=== PATIENT | male | born 1955 | race African-American/Black ===

== ENCOUNTER 2016-07-01 02:54 | Emergency (ER) | payer OTHER ==
[2016-07-01] MEDS ORDERED: DUONEB 0.5 MG/3 MG ONE (03:03)
[2016-07-01] MEDS ORDERED: LASIX IVP ONE ×2 (03:13→03:52)
[2016-07-01] MEDS ORDERED: DUONEB 0.5 MG/3 MG NEB ONE (03:13)
--- NOTE | 2016-07-01 03:14 | DR.GENAD ---
HPI - PCP Primary Care Physician: nfd - HPI Comment HPI Comment: PATIENT HAVE PROGRESSIVE DYSPNEA TIMES 3 MONTHS. ON MEDICATION AND STARTED GETTING WORSE ONE WEEK AGO. TONIGHT WOKE UP AND COULD NOT BREATH. MEDS AT HOME DID NOT HELP. CHEST IS TIGHT AND PATIENT IS WEAK. COUGHING. CHEST IS TIGHT, EXERTIONAL DYSPNEA, PND AND ORTHOPNEA PRESENT. - Complaint/Symptoms Chief Complaint Doctors Comments: INCREASING SOB AND CHEST PAIN. Chief Complaint:: pt states " i feel like i can't breathe coughing for about 3 months" - Nurses notes reviewed Nurses Notes Review: Yes - Source History Provided: Patient - Mode of Arrival Mode of Arrival: Ambulatory - Timing Onset of Chief Complaint: 07/01/16 Came on: Gradually - Duration Duration: Constant Duration: Days - Severity Severity: Moderate PMH - PMH Past Medical History: Yes Past Medical History: Hypertension, Diabetes, Depression Past Medical History Comment: ptsd Past Surgical History: No - Family History History of Family Medical Conditions: Yes Family Medical History: Heart Failure, Hypertension - Social History Does any household member use tobacco: No Alcohol Use: Occasionally Do you use any recreational Drugs:: No Lives With: Family Lives Where: Home - infectious screening In the last 2 months have you had wt loss of >10#?: NO Have you had fever, night sweats or hemotysis?: No Have you traveled outside the country in the last 6 months?: No Isolation: Standard ROS - Review of Systems Constitutional: Weakness, Fatigue. negative: Chills, Fever Eyes: No Symptoms Reported. negative: Eye Pain, Discharge ENTM: Nose Congestion. negative: Ear Pain, Nose Discharge, Throat Pain Respiratoy: Productive Cough, Short of Breath, Wheezing. negative: Hemoptysis Cardiovascular: Chest Pain. negative: Edema, Syncope Gastrointestinal/Abdominal: No Symptoms Reported. negative: Abdominal Pain, Constipation, Diarrhea, Nausea, Vomiting Genitourinary: No Symptoms Reported. negative: Dysuria, Frequency, Hematuria Neurological: Headache, Weakness, Dizziness Musculoskeletal: Muscle Pain Integumentary: No Symptoms Reported Hematologic/Lymphatic: Easy Bruising Endocrine: negative: Flushing All Other Systems: Reviewed and Negative PE - Vital Signs Vitals: Temperature 98.6 F Pulse Rate 88 Respiratory Rate 22 Blood Pressure 176/115 O2 Sat by Pulse Oximetry 96 - General Limitations: No Limitations General Appearance: Alert - Head Head Exam: Normal Inspection - Eyes Eye exam: Normal Appearance - ENT ENT Exam: Normal External Ear Exam External Ear Exam: Normal External Inspection TM/Canal Exam: Bilateral Normal Nose Exam: Normal Nose Exam Mouth Exam: Normal Inspection Throat Exam: Normal Inspection - Neck Neck Exam: Trachea Midline. negative: Tenderness, Meningismus, Lymphadenopathy - Chest Chest Inspection: Symmetric Chest Wall Rise - Respiratory Respiratory Exam: Respiratory Distress. negative: Chest Wall Tenderness Respiratory Exam: Bilateral Wheezing, Bilateral Rhonchi, Upper Rhonchi, Lower Wheezing, Lower Rhonchi - Cardiovascular Cardiovascular Exam: Regular Rate, Normal Rhythm, Normal Heart Sounds, Gallop, + S3 - Abdominal Exam Abdominal Exam: Normal Bowel Sounds, Soft. negative: Tenderness - Extremities Extremities Exam: Normal Inspection - Back Back Exam: Paraspinal Tenderness - Neurologic Neurological Exam: Alert - Psychiatric Psychiatric Exam: Anxious MDM - Additional Information Additional Information Obtained From: Family - Differential Diagnosis Differential Diagnosis: RESPIRATORY DISTRESS, CHF, COPD EXACERBATION, BRONCHITIS , PNEUMONIA Course - Treatment Treatment: SEE ORDERS.. NEB TREATMENT AND IV LASIX. IMPROVING. - Education/Counseling Education/Counseling: Patient, Family, Education Educated On: Treatment, Diagnosis ROR - Labs Reviewed Result Diagrams: 07/01/16 03:21 07/01/16 03:21 Laboratory: WBC 6.9 X10^3/uL (3.6-10.0) 07/01/16 03:21 RBC 5.82 X10^6/uL (4.7-6.0) 07/01/16 03:21 Hgb 16.8 g/dL (13.5-18.0) 07/01/16 03:21 Hct 50.1 % (42.0-54.0) 07/01/16 03:21 MCV 86.0 fL (80.0-100.0) 07/01/16 03:21 MCH 28.9 pg (27.0-34.0) 07/01/16 03:21 MCHC 33.5 g/dL (33.0-35.0) 07/01/16 03:21 RDW 13.9 % (11.6-16.5) 07/01/16 03:21 Plt Count 286 X10^3/uL (150.0-450.0) 07/01/16 03:21 MPV 8.0 fL (7.4-11.0) 07/01/16 03:21 Neut % 43.7 % (42.0-75.0) 07/01/16 03:21 Lymph % 43.4 % (21.0-51.0) 07/01/16 03:21 Sandoval % 7.3 % (0.0-13.0) 07/01/16 03:21 Eos % 4.4 % (0.9-2.9) H 07/01/16 03:21 Baso % 1.2 % (0.2-1.0) H 07/01/16 03:21 Neut # 3.0 x10^3/uL (2.2-4.8) 07/01/16 03:21 Lymph # 3.0 X10^3/uL (1.3-2.9) H 07/01/16 03:21 Sandoval # 0.5 x10^3/uL (0.3-0.8) 07/01/16 03:21 Eos # 0.3 x10^3/uL (0.0-0.2) H 07/01/16 03:21 Baso # 0.1 X10^3/uL (0.0-0.1) 07/01/16 03:21 Absolute Nucleated RBC 0.0 /100WBC 07/01/16 03:21 Sample Site Rbra 07/01/16 03:13 ABG pH 7.470 (7.35-7.45) H 07/01/16 03:13 ABG pCO2 36.0 mmHg (35.0-45.0) 07/01/16 03:13 ABG pO2 75.0 mmHg (80.0-100.0) L 07/01/16 03:13 ABG HCO3 26.2 mmol/L (22-26) H 07/01/16 03:13 ABG O2 Saturation 96.0 % (90-100) 07/01/16 03:13 ABG Base Excess 2.6 mmol/L (-2.0-2.0) H 07/01/16 03:13 Sarwat Test Na 07/01/16 03:13 A-a Gradient 30.0 mmHg 07/01/16 03:13 FiO2 21.000 07/01/16 03:13 Blood Gas Comments Mando abg well-mtf 07/01/16 03:13 Sodium 141 mmol/L (136-145) 07/01/16 03:21 Corrected Sodium 141 mmol/L (136-145) 07/01/16 03:21 Potassium 3.9 mmol/L (3.5-5.1) 07/01/16 03:21 Chloride 103 mmol/L (98-107) 07/01/16 03:21 Carbon Dioxide 28.3 mmol/L (21-32) 07/01/16 03:21 BUN 13 mg/dL (7-18) 07/01/16 03:21 Creatinine 1.17 mg/dL (0.70-1.30) 07/01/16 03:21 Est GFR (MDRD) Af Amer > 60 (>60) 07/01/16 03:21 Est GFR (MDRD) Non-Af > 60 (>60) 07/01/16 03:21 Glucose 112 mg/dL (65-99) H 07/01/16 03:21 Calcium 8.7 mg/dL (8.5-10.1) 07/01/16 03:21 Corrected Calcium 9.3 mg/dL (8.5-10.1) 07/01/16 03:21 Total Bilirubin 0.30 mg/dL (0.2-1.0) 07/01/16 03:21 AST 54 Units/L (15-37) H 07/01/16 03:21 ALT 62 Units/L (12-78) 07/01/16 03:21 Alkaline Phosphatase 54 Units/L (46-116) 07/01/16 03:21 Creatine Kinase 182 Units/L (39-308) 07/01/16 03:21 CK-MB (CK-2) 3.0 ng/mL (0-4.0) 07/01/16 03:21 CK/CKMB % Calc 1.7 % (<4) 07/01/16 03:21 Troponin I 0.17 ng/mL (0-1.5) 07/01/16 03:21 B-Natriuretic Peptide 213 pg/mL (0-79) H 07/01/16 03:21 Total Protein 7.5 g/dL (6.4-8.2) 07/01/16 03:21 Albumin 3.3 g/dL (3.4-5.0) L 07/01/16 03:21 Globulin 4.2 g/dL (2.5-4.5) 07/01/16 03:21 Albumin/Globulin Ratio 0.8 Ratio (1.1-2.1) L 07/01/16 03:21 - XRAY XRAY Interpreted by: Radiologist XRAY Findings: REPORT DISCUSS WITH PATIENT. - EKG Rhythm: NSR (EKG NOTED.) - Diagnosis Discharge Problem: CHF (congestive heart failure) Qualifiers: Congestive heart failure type: combined Congestive heart failure chronicity: acute on chronic Qualified Code(s): I50.43 - Acute on chronic combined systolic (congestive) and diastolic (congestive) heart failure - Discharge Plan Disposition: HOME, SELF-CARE Condition: Stable Prescriptions: Furosemide [Lasix] 20 mg PO QAM #30 tab - Follow ups/Referrals Follow ups/Referrals: NFD,None [Primary Care Provider] - 2 days - Instructions Instructions: Heart Failure, [id number] Additional Instructions: RETURN TO ED IF WORSE.
[2016-07-01 03:22] VITALS: BP 176/115; BMI 24.5
[2016-07-01 03:28] LABS: BASOPHILS # (AUTO) 0.1 X10^3/uL (0.0-0.1); BASOPHILS % (AUTO) 1.2 % (0.2-1.0); EOSINOPHILS # (AUTO) 0.3 x10^3/uL (0.0-0.2); EOSINOPHILS % (AUTO) 4.4 % (0.9-2.9); HEMATOCRIT 50.1 % (42.0-54.0); HEMOGLOBIN 16.8 g/dL (13.5-18.0); LYMPHOCYTES % (AUTO) 43.4 % (21.0-51.0); MEAN CORPUSCULAR HEMOGLOBIN 28.9 pg (27.0-34.0); MEAN CORPUSCULAR HGB CONC 33.5 g/dL (33.0-35.0); MONOCYTES # (AUTO) 0.5 x10^3/uL (0.3-0.8); MONOCYTES % (AUTO) 7.3 % (0.0-13.0); NEUTROPHILS % (AUTO) 43.7 % (42.0-75.0); PLATELET COUNT 286 X10^3/uL (150.0-450.0); RED BLOOD COUNT 5.82 X10^6/uL (4.7-6.0); RED CELL DISTRIBUTION WIDTH 13.9 % (11.6-16.5); WHITE BLOOD COUNT 6.9 X10^3/uL (3.6-10.0)
[2016-07-01 03:41] LABS: BLOOD UREA NITROGEN 13 mg/dL (7-18); CALCIUM 8.7 mg/dL (8.5-10.1); CARBON DIOXIDE 28.3 mmol/L (21-32); CHLORIDE 103 mmol/L (98-107); COR NA(FOR HYPERGLY) 141 mmol/L (136-145); CREATININE 1.17 mg/dL (0.70-1.30); GLUCOSE 112 mg/dL (65-99); SODIUM 141 mmol/L (136-145); TROPONIN I 0.17 ng/mL (0-1.5); eGFR BLACK RACES > 60 (>60); eGFR NON BLACK RACES > 60 (>60)
[2016-07-01 03:42] LABS: ABG BASE EXCESS 2.6 mmol/L (-2.0-2.0); ABG HCO3 26.2 mmol/L (22-26)
--- NOTE | 2016-07-01 03:45 | RAD ---
EXAM: Chest X-ray INDICATION: Shortness of breath COMPARISION: No prior TECHNIQUE: Single view FINDINGS: The lungs are clear and the lung volumes are within normal limits. No pleural effusion or pneumothor ax. The cardiac silhouette is mildly enlarged and there central vascular congestion. The regional s ke[place] is intact. IMPRESSION: There is mild cardiomegaly and central vascular congestion. Reported By:
[2016-07-01 03:46] LABS: ALANINE AMINOTRANSFERASE 62 Units/L (12-78); ALBUMIN 3.3 g/dL (3.4-5.0); ALKALINE PHOSPHATASE 54 Units/L (46-116); ASPARTATE AMINO TRANSFERASE 54 Units/L (15-37); CKMB % 1.7 % (<4); COR CA(FOR HYPOALB) 9.3 mg/dL (8.5-10.1); CREATINE KINASE 182 Units/L (39-308); TOTAL PROTEIN 7.5 g/dL (6.4-8.2)
[2016-07-01 03:50] LABS: B-TYPE NATRIURETIC PEPTIDE 213 pg/mL (0-79)
[2016-07-01] MEDS ORDERED: CATAPRES TAB 0.1 MG PO ONE (04:53)
[2016-07-01] MEDS ORDERED: CATAPRES TAB 0.1 MG ONE (04:54)
== END 2016-07-01 05:45 | disposition home or self-care (01) ==
LOC: ER 02:54
DX: I50.43 Acute on chronic combined systolic (congestive) and diastolic (congestive) heart failure (principal); I51.7 Cardiomegaly; R06.02 Shortness of breath
CPT/HCPCS: 36415; 36600; 71010; 80053; 82550; 82553; 82803; 83880; 84484; 85025; 93005; 93010; 94640; 96365; 96374; 99283; A4222; J1940; J7620

== ENCOUNTER 2017-02-21 08:07 | Emergency (ER) | payer OTHER ==
[2017-02-21 08:16] VITALS: BMI 23.5
--- NOTE | 2017-02-21 08:25 | DR.SOBA ---
HPI - Time Seen Time seen: 08:05 - Primary Care Physician Primary Care Physician: JEFF - HPI Comment HPI Comment: NO FEVER. COUGH PRODUCTIVE WITH BLOOD AND GREEN SPUTUM. CHEST PAIN MAINLY LOWER CHEST. GOT WORSE LAST NIGHT. - Complaints Chief Complaint Doctors Comments: INCREASING SOB, COUGH AND CHEST PAIN TIMES 2 WEEKS. Chief Complaint:: PT. C/O SHORTNESS OF BREATH X 1 DAY AND COUGH X 2 WEEKS. DENIES PAIN. - Reviewed Nurses Notes Reviewed: Yes - Source History Provided: Patient, Significant Other - Mode of Arrival Mode of Arrival: Wheelchair - Timing Onset of Chief Complaint: 02/20/17 - Duration Duration: Weeks - Context Onset:: At Rest, With Light Exertion History of:: None Prehospital Care:: None - Modifying Factors Worsens:: Exertion, Lying Flat Improves:: Sitting Up - Associated Signs and Symptoms Associated Signs and Symptoms: Wheeze, Cough, Nasal Congestion, Hemoptysis, Chest Pain - If Chest Pain Quality: Sharp Location: Right Lower Chest, Left Lower Chest - If Cough Cough: Productive, Green, Bloody PMH - PMH Past Medical History: Yes Past Medical History: CHF, Depression, Diabetes, Hypertension Past Surgical History: Yes Surgical History: Other Past Surgical History Comment: NECK - Family History History of Family Medical Conditions: Yes Family Medical History: Heart Failure, Hypertension - Social History Does patient currently use any type of tobacco product: No Have you used tobacco products in the last 12 months: No Type of Tobacco Use: None Alcohol Use: Heavy Do you use any recreational Drugs:: No Lives With: Spouse Lives Where: Home - infectious screening In the last 2 months have you had wt loss of >10#?: NO Have you had fever, night sweats or hemotysis?: No Have you traveled outside the country in the last 6 months?: No Isolation: Standard ROS - Review of Systems Constitutional: Weakness, Fatigue Eyes: negative: Eye Pain, Discharge ENTM: Nose Discharge, Nose Congestion. negative: Ear Pain, Throat Pain Respiratoy: Productive Cough, Short of Breath, Wheezing, Hemoptysis Cardiovascular: Chest Pain Gastrointestinal/Abdominal: No Symptoms Reported Genitourinary: No Symptoms Reported Neurological: Headache, Weakness, Dizziness Musculoskeletal: Back Pain, Muscle Pain Integumentary: No Symptoms Reported Hematologic/Lymphatic: No Symptoms Reported Endocrine: No Symptoms Reported All Other Systems: Reviewed and Negative PE - Vital Signs Vitals: Temperature 98.1 F Pulse Rate [Apical] 85 Pulse Rate 90 Respiratory Rate 20 Blood Pressure [Left Arm] 158/91 Blood Pressure 179/119 O2 Sat by Pulse Oximetry 97 - General Limitations: No Limitations General Appearance: Alert - Head Head Exam: Normal Inspection - Eyes Eye exam: Normal Appearance - ENT ENT Exam: Normal External Ear Exam - Neck Neck Exam: Trachea Midline. negative: Tenderness, Meningismus, Lymphadenopathy - Chest Chest Inspection: Symmetric Chest Wall Rise - Respiratory Respiratory Exam: Respiratory Distress Respiratory Exam: Bilateral Wheezing, Bilateral Rhonchi, Bilateral Crackles, Upper Wheezing, Upper Rhonchi, Lower Wheezing, Lower Rhonchi, Lower Crackles - Cardiovascular Cardiovascular Exam: Regular Rate, Normal Rhythm, Normal Heart Sounds - Abdominal Exam Abdominal Exam: Normal Bowel Sounds, Soft. negative: Tenderness - Extremities Extremities Exam: Normal Inspection - Back Back Exam: Normal Inspection - Neurologic Neurological Exam: Alert, Oriented X3 - Psychiatric Psychiatric Exam: Normal Affect, Normal Mood - Skin Skin Exam: Normal Color MDM - Additional Information Obtained Additional Information Obtained From: Family - Differential Diagnosis Differential Diagnosis: Bronchitis, CHF, COPD, Mycardial Infarction, Pneumonia, Respiratory Insufficiency Course - Treatment Treatment: SEE ORDERS. MEDS GIVEN IN ED. - Reevaluation 1st: Improved - Education/Counseling Education/Counseling: Patient, Family, Education Educated On: Treatment, Diagnosis, Needs for Follow Up ROR - Labs Reviewed Laboratory Results Reviewed?: Yes Result Diagrams: 02/21/17 08:26 02/21/17 08:26 Laboratory: 02/21/17 10:00 Sputum - Expectorated Sputum Sputum Culture - Final 02/21/17 10:00 Sputum - Expectorated Sputum - Final WBC 7.4 X10^3/uL (3.6-10.0) 02/21/17 08:26 RBC 5.50 X10^6/uL (4.7-6.0) 02/21/17 08:26 Hgb 15.9 g/dL (13.5-18.0) 02/21/17 08:26 Hct 47.5 % (42.0-54.0) 02/21/17 08:26 MCV 86.3 fL (80.0-100.0) 02/21/17 08:26 MCH 28.9 pg (27.0-34.0) 02/21/17 08:26 MCHC 33.5 g/dL (33.0-35.0) 02/21/17 08:26 RDW 13.3 % (11.6-16.5) 02/21/17 08:26 Plt Count 339 X10^3/uL (150.0-450.0) 02/21/17 08:26 MPV 8.3 fL (7.4-11.0) 02/21/17 08:26 Neut % 57.9 % (42.0-75.0) 02/21/17 08:26 Lymph % 30.6 % (21.0-51.0) 02/21/17 08:26 Latimer % 8.6 % (0.0-13.0) 02/21/17 08:26 Eos % 1.7 % (0.9-2.9) 02/21/17 08:26 Baso % 1.2 % (0.2-1.0) H 02/21/17 08:26 Neut # 4.3 x10^3/uL (2.2-4.8) 02/21/17 08:26 Lymph # 2.3 X10^3/uL (1.3-2.9) 02/21/17 08:26 Latimer # 0.6 x10^3/uL (0.3-0.8) 02/21/17 08:26 Eos # 0.1 x10^3/uL (0.0-0.2) 02/21/17 08:26 Baso # 0.1 X10^3/uL (0.0-0.1) 02/21/17 08:26 Absolute Nucleated RBC 0.0 /100WBC 02/21/17 08:26 Sodium 142 mmol/L (136-145) 02/21/17 08:26 Corrected Sodium TNP 02/21/17 08:26 Potassium 3.8 mmol/L (3.5-5.1) 02/21/17 08:26 Chloride 104 mmol/L (98-107) 02/21/17 08:26 Carbon Dioxide 29.7 mmol/L (21-32) 02/21/17 08:26 BUN 12 mg/dL (7-18) 02/21/17 08:26 Creatinine 0.96 mg/dL (0.70-1.30) 02/21/17 08:26 Est GFR (MDRD) Af Amer > 60 (>60) 02/21/17 08:26 Est GFR (MDRD) Non-Af > 60 (>60) 02/21/17 08:26 Glucose 81 mg/dL (65-99) 02/21/17 08:26 Calcium 8.6 mg/dL (8.5-10.1) 02/21/17 08:26 Corrected Calcium 9.2 mg/dL (8.5-10.1) 02/21/17 08:26 Total Bilirubin 0.70 mg/dL (0.2-1.0) 02/21/17 08:26 AST 19 Units/L (15-37) 02/21/17 08:26 ALT 26 Units/L (12-78) 02/21/17 08:26 Alkaline Phosphatase 59 Units/L (46-116) 02/21/17 08:26 Creatine Kinase 135 Units/L (39-308) 02/21/17 08:26 CK-MB (CK-2) 2.2 ng/mL (0-4.0) 02/21/17 08:26 CK/CKMB % Calc 1.6 % (<4) 02/21/17 08:26 Troponin I 0.22 ng/mL (0-1.5) 02/21/17 08:26 Total Protein 7.5 g/dL (6.4-8.2) 02/21/17 08:26 Albumin 3.3 g/dL (3.4-5.0) L 02/21/17 08:26 Globulin 4.2 g/dL (2.5-4.5) 02/21/17 08:26 Albumin/Globulin Ratio 0.8 Ratio (1.1-2.1) L 02/21/17 08:26 - XRAY XRAY Interpreted by: Radiologist XRAY Findings: REPORT DISCUSS WITH PATIENT. - EKG Rhythm: NSR (EKG NOTED) - Diagnosis Discharge Problem: Abnormal CT of the chest Pneumonia Qualifiers: Pneumonia type: due to unspecified organism Laterality: bilateral Lung location : lower lobe of lung Qualified Code(s): J18.9 - Pneumonia, unspecified organism Dyspnea Qualifiers: Dyspnea type: acute respiratory distress Qualified Code(s): R06.03 - Acute respiratory distress - Discharge Plan Disposition: HOME, SELF-CARE Condition: Stable Prescriptions: Benzonatate [TESSALON PERLES *] 200 mg PO TID PRN #30 cap PRN Reason: Cough Cefdinir [Omnicef Cap 300 mg] 300 mg PO BID #20 cap - Follow ups/Referrals Follow ups/Referrals: NFD,None [Primary Care Provider] - 3 days - Instructions Instructions: Community-Acquired Pneumonia, Adult, [id number] Additional Instructions: RETURN TO ED IF WORSE. YOUR CT WAS ABNORMAL. YOU SHOULD FOLLOW THIS UP WITH PRIMARY CARE
[2017-02-21] MEDS ORDERED: DUONEB 0.5 MG/3 MG NEB ONE (08:31)
[2017-02-21] MEDS ORDERED: DUONEB 0.5 MG/3 MG ONE (08:32)
[2017-02-21 08:41] LABS: BASOPHILS # (AUTO) 0.1 X10^3/uL (0.0-0.1); BASOPHILS % (AUTO) 1.2 % (0.2-1.0); EOSINOPHILS # (AUTO) 0.1 x10^3/uL (0.0-0.2); EOSINOPHILS % (AUTO) 1.7 % (0.9-2.9); HEMATOCRIT 47.5 % (42.0-54.0); HEMOGLOBIN 15.9 g/dL (13.5-18.0); LYMPHOCYTES # (AUTO) 2.3 X10^3/uL (1.3-2.9); LYMPHOCYTES % (AUTO) 30.6 % (21.0-51.0); MEAN CORPUSCULAR HEMOGLOBIN 28.9 pg (27.0-34.0); MEAN CORPUSCULAR HGB CONC 33.5 g/dL (33.0-35.0); MEAN CORPUSCULAR VOLUME 86.3 fL (80.0-100.0); MEAN PLATELET VOLUME 8.3 fL (7.4-11.0); MONOCYTES # (AUTO) 0.6 x10^3/uL (0.3-0.8); MONOCYTES % (AUTO) 8.6 % (0.0-13.0); NEUTROPHILS # (AUTO) 4.3 x10^3/uL (2.2-4.8); NEUTROPHILS % (AUTO) 57.9 % (42.0-75.0); PLATELET COUNT 339 X10^3/uL (150.0-450.0); RED CELL DISTRIBUTION WIDTH 13.3 % (11.6-16.5); WHITE BLOOD COUNT 7.4 X10^3/uL (3.6-10.0)
[2017-02-21 08:58] LABS: ALANINE AMINOTRANSFERASE 26 Units/L (12-78); ALBUMIN 3.3 g/dL (3.4-5.0); ALKALINE PHOSPHATASE 59 Units/L (46-116); ASPARTATE AMINO TRANSFERASE 19 Units/L (15-37); BLOOD UREA NITROGEN 12 mg/dL (7-18); CALCIUM 8.6 mg/dL (8.5-10.1); CARBON DIOXIDE 29.7 mmol/L (21-32); CHLORIDE 104 mmol/L (98-107); COR CA(FOR HYPOALB) 9.2 mg/dL (8.5-10.1); CREATININE 0.96 mg/dL (0.70-1.30); SODIUM 142 mmol/L (136-145); TOTAL PROTEIN 7.5 g/dL (6.4-8.2); eGFR BLACK RACES > 60 (>60); eGFR NON BLACK RACES > 60 (>60)
[2017-02-21 09:20] LABS: CKMB % 1.6 % (<4); CREATINE KINASE MB 2.2 ng/mL (0-4.0); TROPONIN I 0.22 ng/mL (0-1.5)
--- NOTE | 2017-02-21 09:39 | CT ---
History: Cough and wheezing Study: CT chest without contrast. Sagittal and coronal reformations were provided. Findings: There is hyperinflation and centrilobular emphysema. There is a small patchy ground-glass o pacity multifocal in the left upper lobe. There is mild haziness to the right middle lobe peripherall y. There is no effusion. There is linear scarring at the lung bases. There is patchy multifocal groun d-glass opacity in the superior segment of the right lower lobe and in the right upper lobe as well. There multiple blebs. There is a tiny right pleural effusion. The visualized upper abdomen shows a pa rtially visualized 7 cm AP diameter cystic mass lateral to the left kidney and ventral to the descend ing colon. There is a small fat containing epigastric midline hernia through a 2 cm wide defect in th e abdominal wall. This is above the umbilicus. Impression: 1. Emphysematous changes. Patchy ground-glass opacities and right middle lobe and upper lobes that ma y represent a pneumonitis 2. Large incompletely imaged low-attenuation mass lateral to the kidney and ileo psoas muscle and alyssa tral to the descending colon of uncertain etiology. It displaces small-bowel ventrally. This could po ssibly represent a pseudomyxoma. 2. Ventral epigastric hernia of peritoneal fat Reported By:
[2017-02-21] MEDS ORDERED: ROCEPHIN VIAL 1 GM IM ONE (10:16)
[2017-02-21] MEDS ORDERED: XYLOCAINE 1 % (PLAIN) ONE (10:18)
[2017-02-21] MEDS ORDERED: ROCEPHIN VIAL 1 GM ONE (10:18)
[2017-02-21 10:23] VITALS: BP 158/91
== END 2017-02-21 10:48 | disposition home or self-care (01) ==
LOC: ER 08:10
DX: J18.9 Pneumonia, unspecified organism (principal); R06.03 Acute respiratory distress; R93.8 Abnormal findings on diagnostic imaging of other specified body structures
CPT/HCPCS: 36415; 71250; 80053; 82550; 82553; 84484; 85025; 87205; 93005; 93010; 94640; 96372; 99283; 99285; J0696; J2001; J7620